=== PATIENT | female | born 1965 | race Caucasian/White ===

== ENCOUNTER 2020-12-31 11:11 | Emergency (ER) | payer OTHER ==
[~2020-12-31] VITALS: Ht 170.2 cm; Wt 90.7 kg
[2020-12-31] MEDS ORDERED: ULTRACET PO (12:42)
[2020-12-31] MEDS ORDERED: DICLOFENAC SODI50 MG PO (12:42)
== END 2020-12-31 13:12 | disposition home or self-care (01) ==
LOC: ER 11:11
DX: S43.015A Anterior dislocation of left humerus, initial encounter (principal); W18.39XA Other fall on same level, initial encounter; Y93.89 Activity, other specified; Y92.832 Beach as the place of occurrence of the external cause; Y99.8 Other external cause status